=== PATIENT | female | born 1980 | race African-American/Black ===

== ENCOUNTER 2019-02-20 05:25 | Emergency (ER) | payer SELFPAY ==
--- NOTE | 2019-02-20 08:11 | RAD ---
TWO VIEWS OF THE CHEST: COMPARISON: None. HISTORY: Shoulder pain for a day and chest pain. FINDINGS: Two views of the chest show normal sized cardiomediastinal silhouette. There is no evidence of consol idation, mass, or pleural effusion. The bones are unremarkable. IMPRESSION: No evidence of acute cardiopulmonary disease. POS: CET
== END 2019-02-20 06:13 | disposition home or self-care (01) ==
LOC: ERS 05:25
DX: R09.1 Pleurisy (principal)
CPT/HCPCS: 71046

== ENCOUNTER 2019-12-03 06:55 | Emergency (ER) | payer SELFPAY ==
[2019-12-03 08:12] LABS: Bilirubin Negative (Negative); Blood, Urine Negative (Negative); Clarity Clear (Clear); Glucose, Urine (Dipstick) Normal (Negative); Ketone, Urine Negative (Negative); Leukocyte Negative Leu/uL (Negative); Nitrite Negative (Negative); Protein, Urine (Dipstick) Negative (Neg-Trace); Specific Gravity, Urine 1.017 (1.002-1.036); Urobilinogen Normal mg/dL (Less than 2)
--- NOTE | 2019-12-03 09:06 | CT ---
CT BRAIN NONCONTRAST: DATE: 12/03/2019 HISTORY: 38-year-old female with dizziness FINDINGS: There is no evidence of acute intra-axial or extra-axial hemorrhage. There is no midline shift or any other mass effect. There is no extra-axial fluid collection. There is no evidence of obstructive hydrocephalus. Calvarium is intact. IMPRESSION: No acute intracranial findings.
[2019-12-03] MEDS ORDERED: Acetaminophen 500 MG TAB ONE (09:11)
[2019-12-03] MEDS ORDERED: Ondansetron ODT 4 MG TAB ONE (09:11)
[2019-12-03 09:33] LABS: BHCG - Serum Negative (NEGATIVE); Pregs Control Background? CLEAR/WHITE (CLR/WHITE); Pregs Control Bar Appear? YES (CONTROL BAR)
[2019-12-03 09:49] LABS: ALT (SGPT) 9 U/L (8-55); AST (SGOT) 13 U/L (5-34); Alkaline Phosphatase 40 U/L (40-110); Anion Gap 12 mmol/L (10-20); BUN (Urea Nitrogen) 11 mg/dL (7.0-18.7); Bilirubin, Total 0.3 mg/dL (0.2-1.2); Calc. Creatinine Clearance 0 mL/min (70-130); Calcium 8.6 mg/dL (7.8-10.44); Carbon Dioxide 25 mmol/L (22-29); Chloride 105 mmol/L (98-107); Estimated GFR-MDRD Greater than 90; Globulin 2.7 g/dL (2.4-3.5); Glucose 84 mg/dL (70-105); Potassium 3.8 mmol/L (3.5-5.1); Protein, Total 6.7 g/dL (6.0-8.3); Sodium 138 mmol/L (136-145)
[2019-12-03 09:58] LABS: Hemoglobin 11.5 g/dL (12.0-16.0); Mean Corpuscular HGB CONC 31.5 g/dL (32.0-36.0); Mean Corpuscular Hemoglobin 24.7 pg (27.0-31.0); Mean Corpuscular Volume 78.5 fL (78.0-98.0); Mean Platelet Volume 9.9 fL (7.4-10.4); Platelet Count 316 thou/uL (130-400); RBC Distribution Width 13.1 % (11.5-14.5); Red Blood Cell (RBC) Count 4.64 mill/uL (4.20-5.40); White Blood Cell (WBC) Count 7.4 thou/uL (4.8-10.8)
[2019-12-03 10:22] LABS: Eosinophils 1 % (0-10); Hypochromia SLIGHT = 6-15 cells (100X) (0-5/hpf); Lymphocytes 52 % (21-51); MDiff Complete? YES; Microcytosis SLIGHT = 6-15 cells (100X) (0-5/hpf); Monocytes 1 % (0-10); Neutrophil 46 % (42-75); Platelet Morphology Comment Appears Adequate; Polychromasia SLIGHT = 2-3 cells (100X) (0-2/hpf); Target Cells MODERATE= 6-15 cells (100X) (0-1/hpf)
--- NOTE | 2019-12-06 13:07 | EKG ---
Test Reason : Blood Pressure : / mmHG Vent. Rate : 072 BPM Atrial Rate : 072 BPM P-R Int : 128 ms QRS Dur : 086 ms QT Int : 386 ms P-R-T Axes : 054 028 033 degrees QTc Int : 422 ms Normal sinus rhythm with sinus arrhythmia Normal ECG Confirmed by MICHELLE LEUNG ([id number]), fashion editor MITCHELL BAXTER ([id number]) on 12/06/2019 1:06:54 PM Referred By: Confirmed By:MICHELLE LEUNG
== END 2019-12-03 11:49 | disposition home or self-care (01) ==
LOC: ERS 06:55
DX: R42 Dizziness and giddiness (principal); E86.0 Dehydration
CPT/HCPCS: 36415; 70450; 80053; 81003; 84703; 85025; 93005; Q0162

== ENCOUNTER 2021-03-26 20:49 | Inpatient (IN) | payer BC, SELFPAY ==
[2021-03-26 21:20] LABS: Hemoglobin 10.8 g/dL (12.0-16.0); Mean Corpuscular HGB CONC 32.1 g/dL (32.0-36.0); Mean Corpuscular Hemoglobin 25.7 pg (27.0-31.0); Mean Corpuscular Volume 79.9 fL (78.0-98.0); Mean Platelet Volume 9.2 fL (7.4-10.4); Platelet Count 283 thou/uL (130-400); RBC Distribution Width 13.8 % (11.5-14.5); Red Blood Cell (RBC) Count 4.22 mill/uL (4.20-5.40); White Blood Cell (WBC) Count 12.4 thou/uL (4.8-10.8)
[2021-03-26] MEDS ORDERED: Lidocaine 1% (PF) 30 ML VIAL ONE (21:21)
[2021-03-26] MEDS ORDERED: Dextrose 5% in Water 1,000 ML IV PRN (21:27)
[2021-03-26] MEDS ORDERED: Ondansetron PF 4 MG/2 ML Vial IVP PRN (21:27)
[2021-03-26] MEDS ORDERED: TETANUS AND DIPHTHERIA TOX/PF 0.5 ML DISP.SYRIN IM ONE (21:27)
[2021-03-26] MEDS ORDERED: Morphine 4 MG/ML VIAL SLOW IVP PRN ×2 (21:27→21:41)
[2021-03-26] MEDS ORDERED: Dextrose 50% Abboject 50 ML SYRINGE SLOW IVP PRN (21:27)
[2021-03-26] MEDS ORDERED: hydrALAZINE 20 MG/ML VIAL SLOW IVP PRN (21:27)
[2021-03-26] MEDS ORDERED: Sodium Chloride 0.9% 1,000 ML IV SCH (21:30)
[2021-03-26 21:32] LABS: BHCG - Serum Negative (NEGATIVE); Pregs Control Background? CLEAR/WHITE (CLR/WHITE); Pregs Control Bar Appear? YES (CONTROL BAR)
[2021-03-26] MEDS ORDERED: Cyclobenzaprine 10 MG TAB PO PRN (21:33)
[2021-03-26] MEDS ORDERED: traMADol HCl 50 MG TAB PO PRN (21:33)
[2021-03-26 21:40] LABS: ALT (SGPT) 9 U/L (8-55); AST (SGOT) 15 U/L (5-34); Albumin 3.5 g/dL (3.5-5.0); Alkaline Phosphatase 39 U/L (40-110); Anion Gap 15 mmol/L (10-20); BUN (Urea Nitrogen) 7 mg/dL (7.0-18.7); Bilirubin, Total 0.2 mg/dL (0.2-1.2); Calc. Creatinine Clearance 0 mL/min (70-130); Carbon Dioxide 18 mmol/L (22-29); Chloride 107 mmol/L (98-107); Globulin 2.9 g/dL (2.4-3.5); Glucose 133 mg/dL (70-105); Protein, Total 6.4 g/dL (6.0-8.3); Sodium 137 mmol/L (136-145)
[2021-03-26 21:44] LABS: Magnesium 1.7 mg/dL (1.6-2.6); Phosphorus 3.4 mg/dL (2.3-4.7)
[2021-03-26 21:46] LABS: Band 5 % (5-11); Lymphocytes 35 % (21-51); MDiff Complete? YES; Monocytes 2 % (0-10); Neutrophil 58 % (42-75)
[2021-03-26] MEDS ORDERED: Boostrix 0.5 ML (Tdap) VIAL ONE (21:57)
[2021-03-26] MEDS ORDERED: Magnesium Sulfate 2 GM in Sodium Chloride 0.9% 100 ML IVPB SCH (22:00)
[2021-03-26] MEDS ORDERED: Morphine 4 MG/ML VIAL ONE (22:03)
[2021-03-26 22:35] LABS: SARS-CoV-2 NAA Rapid Test Not Detected (NotDetected)
[2021-03-26] MEDS ORDERED: Magnesium 2 GM/50 ML 2 GM in Premix Bag 1 BAG IVPB SCH (22:45)
[2021-03-26] MEDS: Acetaminophen 500 MG TAB PO SCH (23:38)
[2021-03-26] MEDS: traMADol HCl 50 MG TAB PO SCH (23:38)
[2021-03-27 00:27] VITALS: BMI 33.1
[2021-03-27] MEDS: traMADol HCl 50 MG TAB PO SCH ×4 (03:40→20:36)
[2021-03-27] MEDS: Acetaminophen 500 MG TAB PO SCH ×4 (03:40→20:35)
[2021-03-27] MEDS: Potassium Chloride 20 MEQ in Premix Bag 1 BAG IVPB SCH ×2 (03:41→06:16)
[2021-03-27 06:19] LABS: #Lymphocytes 1.4 thou/uL (1.20-3.40); #Monocytes 0.3 thou/uL (0.11-0.59); #Neutrophils 9.8 thou/uL (1.40-6.50); %Basophils 0.1 % (0.0-1.0); %Eosinophils 0.1 % (0.0-10.0); %Lymphocytes 12.4 % (21.0-51.0); %Monocytes 2.9 % (0.0-10.0); %Neutrophils 84.5 % (42.0-75.0); Hemoglobin 10.7 g/dL (12.0-16.0); Mean Corpuscular HGB CONC 31.8 g/dL (32.0-36.0); Mean Corpuscular Hemoglobin 24.7 pg (27.0-31.0); Mean Corpuscular Volume 77.6 fL (78.0-98.0); Mean Platelet Volume 9.6 fL (7.4-10.4); Platelet Count 280 thou/uL (130-400); RBC Distribution Width 13.8 % (11.5-14.5); Red Blood Cell (RBC) Count 4.34 mill/uL (4.20-5.40); White Blood Cell (WBC) Count 11.6 thou/uL (4.8-10.8)
[2021-03-27] MEDS: Famotidine 20 MG TAB PO SCH ×2 (09:30→20:31)
[2021-03-27] MEDS: Senokot S 8.6-50 MG TAB PO SCH ×2 (09:30→20:31)
[2021-03-27] MEDS: Gabapentin 300 MG CAP PO SCH ×3 (09:30→20:31)
[2021-03-27] MEDS: Polyethylene Glycol 3350 17 GM Packet PO SCH (09:30)
[2021-03-27] MEDS: Gabapentin 100 MG CAP PO SCH (20:45)
[2021-03-28] MEDS: traMADol HCl 50 MG TAB PO SCH (04:21)
[2021-03-28] MEDS: Acetaminophen 500 MG TAB PO SCH (04:21)
[2021-03-28 05:27] LABS: Hemoglobin 10.4 g/dL (12.0-16.0); Mean Corpuscular HGB CONC 31.4 g/dL (32.0-36.0); Mean Corpuscular Hemoglobin 24.5 pg (27.0-31.0); Mean Corpuscular Volume 77.8 fL (78.0-98.0); Mean Platelet Volume 9.4 fL (7.4-10.4); Platelet Count 241 thou/uL (130-400); RBC Distribution Width 13.7 % (11.5-14.5); Red Blood Cell (RBC) Count 4.26 mill/uL (4.20-5.40); White Blood Cell (WBC) Count 9.1 thou/uL (4.8-10.8)
[2021-03-28 05:43] LABS: Anion Gap 12 mmol/L (10-20); BUN (Urea Nitrogen) 8 mg/dL (7.0-18.7); Calc. Creatinine Clearance 163 mL/min (70-130); Calcium 8.5 mg/dL (7.8-10.44); Carbon Dioxide 23 mmol/L (22-29); Chloride 105 mmol/L (98-107); Glucose 93 mg/dL (70-105); Magnesium 2.3 mg/dL (1.6-2.6); Phosphorus 3.4 mg/dL (2.3-4.7); Potassium 3.8 mmol/L (3.5-5.1); Sodium 136 mmol/L (136-145)
[2021-03-28 05:51] LABS: Band 2 % (5-11); Hypochromia SLIGHT = 6-15 cells (100X) (0-5/hpf); Lymphocytes 46 % (21-51); MDiff Complete? YES; Monocytes 7 % (0-10); Neutrophil 44 % (42-75); Reactive Lymphocytes 1 % (0-10)
[2021-03-28] MEDS ORDERED: PHOS-NAK 1 PKT PACK PO SCH (08:00)
[2021-03-28] MEDS: Gabapentin 100 MG CAP PO SCH ×2 (08:26→15:52)
[2021-03-28] MEDS: Famotidine 20 MG TAB PO SCH (08:26)
[2021-03-28] MEDS: Senokot S 8.6-50 MG TAB PO SCH (08:27)
[2021-03-28] MEDS: Polyethylene Glycol 3350 17 GM Packet PO SCH (08:27)
[2021-03-28] MEDS ORDERED: traMADol HCl 50 MG TAB PO SCH (12:00)
[2021-03-28] MEDS ORDERED: Acetaminophen 500 MG TAB PO SCH (12:00)
[2021-03-28 16:02] VITALS: BP 110/74; TEMP 98.6
== END 2021-03-28 19:30 | disposition home or self-care (01) | DRG 200 ==
LOC: EEVIPCON 20:49 → ERS 20:49 → SURG A 21:27
PROVIDERS: ADMIT Surgery; ATTEND Surgery
PROC: 0W9930Z Drainage of Right Pleural Cavity with Drainage Device, Percutaneous Approach (ICD-10-PCS; principal; 2021-03-26)
DX: S27.0XXA Traumatic pneumothorax, initial encounter (principal); Z23 Encounter for immunization; S21.111A Laceration without foreign body of right front wall of thorax without penetration into thoracic cavity, initial encounter; Z20.822 Contact with and (suspected) exposure to COVID-19; E87.6 Hypokalemia; W26.0XXA Contact with knife, initial encounter; Z88.6 Allergy status to analgesic agent; Z88.1 Allergy status to other antibiotic agents
CPT/HCPCS: 36415; 71045; 80048; 80053; 83735; 84100; 84703; 85025; 86850; 86900; 86901; 90471; 90715; 96372; 96374; G0390; J2001; J2270; J3475; J3480; J7050; U0002

== ENCOUNTER 2021-04-13 14:16 | Outpatient (CLI) | payer OTHER | END 2021-04-13 14:17 | disposition home or self-care (01) | LOC: RAD-FRANK 14:16 | PROVIDERS: ATTEND Nurse Practitioner Family | DX: R05.9 Cough, unspecified (principal); J90 Pleural effusion, not elsewhere classified | CPT/HCPCS: 71046 ==